=== PATIENT | male | born 1990 | race Caucasian/White ===

== ENCOUNTER 2020-10-17 04:02 | Emergency (ER) | payer MEDICAID ==
[~2020-10-17 04:02] MED LIST: ATAZ100C; EMTR1TAB; HYDR-3965 PO; IBUP-1574 PO; LORA1TAB PO; NYST1POW10 MC; RITO100C7 PO; SULF1TAB45 PO; ZOV200C PO
[2020-10-17 04:17] VITALS: BP 116/75
== END 2020-10-17 04:28 | disposition left against medical advice (07) ==
LOC: ER 04:04
DX: T40.411A Poisoning by fentanyl or fentanyl analogs, accidental (unintentional), initial encounter (principal); Z53.21 Procedure and treatment not carried out due to patient leaving prior to being seen by health care provider; Y92.89 Other specified places as the place of occurrence of the external cause

== ENCOUNTER 2023-08-27 17:31 | Emergency (ER) | payer MEDICAID ==
[~2023-08-27] VITALS: Ht 172.7 cm; Wt 90.9 kg
[2023-08-27 17:33] VITALS: TEMP 98.5
[2023-08-27 21:41] VITALS: BP 131/86; PULSE 96; RESP 16; O2SAT 98
== END 2023-08-27 21:42 | disposition home or self-care (01) ==
LOC: ER 17:31
DX: T40.601A Poisoning by unspecified narcotics, accidental (unintentional), initial encounter (principal); R11.2 Nausea with vomiting, unspecified; Y92.89 Other specified places as the place of occurrence of the external cause; B20 Human immunodeficiency virus [HIV] disease; F12.90 Cannabis use, unspecified, uncomplicated; F15.90 Other stimulant use, unspecified, uncomplicated
CPT/HCPCS: 99283

== ENCOUNTER 2024-02-05 19:21 | Inpatient (IN) | payer MEDICAID ==
[~2024-02-05] VITALS: Ht 175.3 cm; Wt 86.4 kg
[2024-02-05] MEDS ORDERED: vancomycin/NS 1 GM ADD-VANTAGE 250 ML IV SCH (20:00)
[2024-02-05 20:19] LABS: BASOPHILS % (AUTO) 0.7 % (0-1); EOSINOPHILS # (AUTO) 0.1 X10'3 (0-0.9); EOSINOPHILS % (AUTO) 1.6 % (0-6); HEMATOCRIT 37.1 % (42.0-52.0); HEMOGLOBIN 12.3 g/dl (14.0-17.9); LYMPHOCYTES # (AUTO) 2.2 X10'3 (1.1-4.8); LYMPHOCYTES % (AUTO) 33.4 % (21-51); MEAN CORPUSCULAR HEMOGLOBIN 28.4 PG (27.0-31.0); MEAN CORPUSCULAR HGB CONC 33.1 g/dL (33.0-36.5); MEAN CORPUSCULAR VOLUME 85.8 FL (78-98); MEAN PLATELET VOLUME 7.3 FL (7.4-10.4); MONOCYTES # (AUTO) 0.6 X10'3 (0-0.9); MONOCYTES % (AUTO) 8.6 % (2-12); NEUTROPHILS # (AUTO) 3.7 X10'3 (1.8-7.7); NEUTROPHILS % (AUTO) 55.7 % (42-75); PLATELET COUNT 222 X10'3 (140-440); RED BLOOD COUNT 4.32 X10'6 (4.70-6.10); RED CELL DISTRIBUTION WIDTH 15.4 % (11.5-14.5); WHITE BLOOD COUNT 6.6 X10'3 (4.5-11.0)
[2024-02-05] MEDS: vancomycin 1,750 MG in NS 350ml IV soln IV ONE (20:30)
[2024-02-05 20:33] LABS: ALANINE AMINOTRANSFERASE 42 U/L (12-78); ALBUMIN 3.3 G/DL (3.4-5.0); ALBUMIN/GLOBULIN RATIO 0.8 (1.1-1.5); ALKALINE PHOSPHATASE 68 IU/L (46-116); ANION GAP 3 (8-16); ASPARTATE AMINO TRANSFERASE 35 U/L (10-37); BILIRUBIN,TOTAL 0.4 MG/DL (0.1-1.0); BLOOD UREA NITROGEN 14 MG/DL (7-18); BUN/CREATININE RATIO 13.3 (10.0-20.0); C-REACTIVE PROTEIN 0.19 MG/DL (0.0-0.5); CALCIUM 8.5 MG/DL (8.5-10.1); CHLORIDE 104 MMOL/L (99-107); CREATININE 1.05 MG/DL (0.60-1.10); GLUCOSE 110 MG/DL (70-104); POTASSIUM 3.7 MMOL/L (3.5-5.1); SODIUM 139 MMOL/L (135-145); TOTAL CARBON DIOXIDE 31.8 MMOL/L (24-32); TOTAL PROTEIN 7.7 G/DL (6.4-8.2); eCRCL 99 ML/MIN; eGFR 81 ML/MIN
[2024-02-05] MEDS ORDERED: HYDROcodone/acetaminophen 5mg/325mg tablet PO PRN (21:15)
[2024-02-05] MEDS ORDERED: potassium Cl 40MEQ/1/2NS 520ml 520 ML IV PRN (21:15)
[2024-02-05] MEDS ORDERED: ondansetron/PF 4mg/2ml inj IV PRN (21:15)
[2024-02-05] MEDS ORDERED: magnesium Cl slow-release 64mg tablet PO PRN (21:15)
[2024-02-05] MEDS ORDERED: acetaminophen 325mg tablet PO PRN ×2 (21:15)
[2024-02-05] MEDS ORDERED: HYDROcodone/acetaminophen 10/325mg tab PO PRN (21:15)
[2024-02-05] MEDS ORDERED: mag hydrox/Alum hydrox/simeth 30ml oral suspension PO PRN (21:15)
[2024-02-05] MEDS ORDERED: magnesium sulf-water 4G/100mL 100 ML IV PRN (21:15)
[2024-02-05] MEDS ORDERED: potassium Cl 20 mEq SR tablet PO PRN ×2 (21:15)
[2024-02-05] MEDS ORDERED: magnesium sulf-water 2g/50mL 50 ML IV PRN (21:15)
[2024-02-05 23:30] VITALS: BP 101/54; PULSE 72; RESP 18; TEMP 97.9; O2SAT 95
[2024-02-06] MEDS: piperacillin/tazo 3.375gm/50ml 50 ML IV SCH (01:51)
[2024-02-06 06:00] VITALS: BP 120/70; PULSE 54; RESP 18; TEMP 98; O2SAT 99
[2024-02-06 08:00] VITALS: RESP 16; O2SAT 98
[2024-02-06] MEDS ORDERED: CefTRIAXone 2gm/D5W 50ml BAG 50 ML IV SCH (08:00)
[2024-02-06] MEDS: K and/or MAG REPLACEMENT MC SCH (08:00)
[2024-02-06] MEDS: enoxaparin 40mg/0.4ml syringe SUBCUT SCH (08:00)
[2024-02-06] MEDS ORDERED: vancomycin/NS 1 GM ADD-VANTAGE 250 ML IV SCH ×2 (08:00→08:10)
[2024-02-06] MEDS: nicotine 14mg patch - 24hr TD SCH (09:41)
[2024-02-06] MEDS: vancomycin/NS 1 GM ADD-VANTAGE 250 ML IV SCH (09:45)
[2024-02-06 10:00] VITALS: BP 94/50; PULSE 59; RESP 14; TEMP 97.9; O2SAT 98
[2024-02-06] MEDS ORDERED: GADOTERATE MEGLUMINE 7.5 MMOL/15 ML VIAL IV ONE (12:07)
[2024-02-06 18:00] VITALS: BP 105/57; PULSE 61; RESP 16; TEMP 97.8; O2SAT 99
[2024-02-06] MEDS: emtricitabine/tenofovir 200mg/300mg tablet PO SCH (18:42)
[2024-02-06] MEDS: buprenorphine/naloxone 8MG-2MG SUBlingual film SL SCH (18:43)
[2024-02-06 22:00] VITALS: BP 135/64; PULSE 55; RESP 18; TEMP 98; O2SAT 96
[2024-02-06] MEDS: VANCOMYCIN LEVEL IV ONE (23:30)
[2024-02-07 06:00] VITALS: BP 119/64; PULSE 60; RESP 16; TEMP 97.7; O2SAT 99
[2024-02-07] MEDS: VANCOMYCIN 1 GM IV SCH (09:57)
[2024-02-07] MEDS: [UNRECOGNIZED DRUG - OTHER] IV SCH (09:57)
[2024-02-07] MEDS: PEG IV SCH (09:57)
[2024-02-07] MEDS: LORazepam 2 mg/ml vial IV PRN (10:22)
[2024-02-07] MEDS ORDERED: linezolid 600mg tablet PO SCH (20:00)
== END 2024-02-07 12:15 | disposition left against medical advice (07) | DRG 344 ==
LOC: ER 19:21 → ED HOLD 21:16 → ORTHO 4S 23:28
PROVIDERS: ADMIT Internal Medicine Critical Care Medicine; ATTEND Family Medicine
DX: M86.8X7 Other osteomyelitis, ankle and foot (principal); F11.10 Opioid abuse, uncomplicated; L03.031 Cellulitis of right toe; Z53.21 Procedure and treatment not carried out due to patient leaving prior to being seen by health care provider; Z79.899 Other long term (current) drug therapy
CPT/HCPCS: 36415; 73630; 73723; 80053; 83605; 85025; 85651; 86140; 87040; 87081; 96365; 96376; 99285; A9575; G0378; J1650; J2060; J2543; J3370; J7040

== ENCOUNTER 2024-02-28 15:34 | Emergency (ER) | payer MEDICAID ==
[~2024-02-28] VITALS: Ht 172.7 cm; Wt 87.7 kg
[~2024-02-28 15:34] MED LIST changes: +ceFAZolin/D5W- 1GM premix 50 ML IV ONE
[2024-02-28 15:42] VITALS: BP 148/83; PULSE 77; RESP 16; TEMP 97.5; O2SAT 100
[2024-02-28 16:54] LABS: BASOPHILS % (AUTO) 0.7 % (0-1); EOSINOPHILS # (AUTO) 0.1 X10'3 (0-0.9); EOSINOPHILS % (AUTO) 0.9 % (0-6); HEMATOCRIT 42.1 % (42.0-52.0); LYMPHOCYTES # (AUTO) 1.6 X10'3 (1.1-4.8); LYMPHOCYTES % (AUTO) 24.6 % (21-51); MEAN CORPUSCULAR HEMOGLOBIN 28.4 PG (27.0-31.0); MEAN CORPUSCULAR HGB CONC 33.2 g/dL (33.0-36.5); MEAN CORPUSCULAR VOLUME 85.6 FL (78-98); MEAN PLATELET VOLUME 7.3 FL (7.4-10.4); MONOCYTES # (AUTO) 0.4 X10'3 (0-0.9); MONOCYTES % (AUTO) 5.7 % (2-12); NEUTROPHILS # (AUTO) 4.4 X10'3 (1.8-7.7); NEUTROPHILS % (AUTO) 68.1 % (42-75); PLATELET COUNT 284 X10'3 (140-440); RED BLOOD COUNT 4.92 X10'6 (4.70-6.10); RED CELL DISTRIBUTION WIDTH 15.2 % (11.5-14.5); WHITE BLOOD COUNT 6.5 X10'3 (4.5-11.0)
[2024-02-28] MEDS ORDERED: CefTRIAXone/D5W-Rocephin 1gm 50 ML IV ONE (17:00)
[2024-02-28] MEDS ORDERED: VANCOMYCIN 1.75GM/WATER FOR INJ (PEG) 350 ML IVPB IV ONE (17:15)
[2024-02-28 17:24] LABS: ALANINE AMINOTRANSFERASE 63 U/L (12-78); ALBUMIN 3.6 G/DL (3.4-5.0); ALBUMIN/GLOBULIN RATIO 0.7 (1.1-1.5); ALKALINE PHOSPHATASE 88 IU/L (46-116); ANION GAP 4 (8-16); ASPARTATE AMINO TRANSFERASE 49 U/L (10-37); BILIRUBIN,TOTAL 0.5 MG/DL (0.1-1.0); BLOOD UREA NITROGEN 16 MG/DL (7-18); C-REACTIVE PROTEIN 0.49 MG/DL (0.0-0.5); CALCIUM 8.9 MG/DL (8.5-10.1); CHLORIDE 102 MMOL/L (99-107); GLUCOSE 101 MG/DL (70-104); POTASSIUM 4.1 MMOL/L (3.5-5.1); SODIUM 138 MMOL/L (135-145); TOTAL CARBON DIOXIDE 32.1 MMOL/L (24-32); TOTAL PROTEIN 9.1 G/DL (6.4-8.2); eCRCL 126 ML/MIN; eGFR > 90 ML/MIN
[2024-02-28] MEDS ORDERED: VANCOmycin 1250MG/NS 250ml Bag 250 ML IV SCH (20:00)
== END 2024-02-28 17:19 | disposition left against medical advice (07) ==
LOC: ER 15:35
DX: M86.8X7 Other osteomyelitis, ankle and foot (principal); L03.115 Cellulitis of right lower limb; F12.90 Cannabis use, unspecified, uncomplicated; F15.90 Other stimulant use, unspecified, uncomplicated; Z79.1 Long term (current) use of non-steroidal anti-inflammatories (NSAID); Z79.899 Other long term (current) drug therapy; Z56.0 Unemployment, unspecified
CPT/HCPCS: 36415; 73630; 73700; 80053; 83605; 84145; 85025; 85651; 86140; 87040; 99284

== ENCOUNTER 2024-10-04 13:33 | Outpatient (CLI) | payer MEDICAID ==
[~2024-10-04 13:33] MED LIST changes: -ceFAZolin/D5W- 1GM premix 50 ML IV ONE
--- NOTE | 2024-10-04 15:40 | RADIOLOGY REPORT ---
INDICATION: UNSP SYMPTOMS AND SIGNS INVOLVING THE GENITOURINARY SYSTEM TECHNIQUE: Multiple real-time sonographic images of the kidneys and bladder were obtained. COMPARISON: None FINDINGS: The right kidney measures 12 cm in length. The right renal echogenicity, contour and cortic al thickness are within normal limits. No hydronephrosis or large masses/calculi are seen. The left kidney measures 12 cm in length. The left renal echogenicity, contour, and cortical thicknes s are within normal limits. No hydronephrosis or large masses/calculi are seen. No large intraluminal masses are seen in the bladder. IMPRESSION: 1. Unremarkable examination.
== END 2024-10-04 23:59 | disposition home or self-care (01) ==
LOC: RAD 13:33
PROVIDERS: ATTEND Nurse Practitioner Family
DX: R39.9 Unspecified symptoms and signs involving the genitourinary system (principal)
CPT/HCPCS: 76770